=== PATIENT | female | born 1960 | race Caucasian/White ===

== ENCOUNTER → 2021-09-09 | Outpatient (CLI) | payer BC | LOC: VAS 08:35 → RAD 09:00 | DX: M79.89 Other specified soft tissue disorders (principal) ==

== ENCOUNTER → 2022-05-23 | Outpatient (CLI) | payer BC | LOC: RAD 13:00 | DX: M51.16 Intervertebral disc disorders with radiculopathy, lumbar region (principal); M48.061 Spinal stenosis, lumbar region without neurogenic claudication ==